=== PATIENT | male | born 1940 | race Hispanic/Latino ===

== ENCOUNTER 2016-12-22 13:21 | Emergency (ER) | payer MEDICARE ==
--- NOTE | 2016-12-22 14:31 | Emergency Department Report ---
ED Fall HPI - General Chief Complaint: Fall Stated Complaint: FALL/WEAKNESS Time Seen by Provider: 12/22/16 14:14 Source: patient, EMS (ems notes not available at time of chart dictation), RN notes reviewed Mode of arrival: Stretcher - History of Present Illness Initial Comments: This is a 75-year-old male. He is previously unknown to me. Has a past medical history of hypertension and bipolar disorder. The patient is brought to the hospital for multiple falls. He fell today at his right-hand side. He denies headache, neck pain, chest pain, abdominal pain before the fall. He landed on his right hip. He complains of right hip pain. He does not think he hit his head or his neck. He denies irritative and obstructive urinary symptoms. Denies chest pain or shortness of breath. He denies extremity weakness and numbness. The patient also reports that he had a few other falls earlier on this week. Thinks he fell at least once. MD Complaint: fall -: Sudden Fall From: out of bed When Fall Occurred: unsure Fall Witnessed: no Place Fall Occurred: other Prolonged Down Time?: no Symptoms Prior to Fall: none Location - Extremities: Right: Thigh, Leg Severity: mild Context: tripped/slipped, history of frequent falls Associated Symptoms: denies: headache, neck pain, numbness, weakness, chest paint, shortness of breath, abdominal pain, hematuria, lightheaded, vertigo, confusion - Related Data Allergies Allergy/AdvReac Type Severity Reaction Status Date / Time chlorpromazine HCl Allergy Unknown Verified 12/22/16 13:40 [From Thorazine] divalproex sodium Allergy Unknown Verified 12/22/16 13:40 [From Depakote] haloperidol [From Haldol] Allergy Unknown Verified 12/22/16 13:40 haloperidol lactate Allergy Unknown Verified 12/22/16 13:40 [From Haldol] lorazepam [From Ativan] Allergy Unknown Verified 12/22/16 13:40 methocarbamol [From Robaxin] Allergy Unknown Verified 12/22/16 13:40 ED Review of Systems ROS: Stated complaint: FALL/WEAKNESS Other details as noted in HPI Constitutional: denies: fever Eyes: denies: eye discharge Respiratory: denies: cough Cardiovascular: denies: chest pain, palpitations Endocrine: no symptoms reported Gastrointestinal: denies: abdominal pain, nausea, diarrhea Genitourinary: denies: urgency, dysuria Musculoskeletal: back pain, arthralgia. denies: joint swelling Skin: rash. denies: lesions Neurological: denies: headache, weakness, paresthesias Psychiatric: denies: anxiety, depression Hematological/Lymphatic: denies: easy bleeding, easy bruising ED Past Medical Hx - Past Medical History Previous Medical History?: Yes Hx Hypertension: Yes Hx Psychiatric Treatment: Yes (bipolar) - Surgical History Past Surgical History?: No - Social History Smoking Status: Never Smoker Substance Use Type: None ED Physical Exam - General Limitations: No Limitations General appearance: alert, in no apparent distress - Head Head exam: Present: atraumatic, normocephalic - Eye Eye exam: Present: normal appearance, EOMI. Absent: nystagmus - ENT ENT exam: Present: normal exam, normal orophraynx, mucous membranes moist, normal external ear exam - Neck Neck exam: Present: normal inspection, full ROM. Absent: tenderness, meningismus - Respiratory Respiratory exam: Present: normal lung sounds bilaterally. Absent: respiratory distress, wheezes, rales, rhonchi, stridor, chest wall tenderness - Cardiovascular Cardiovascular Exam: Present: regular rate, normal rhythm, normal heart sounds. Absent: bradycardia, tachycardia, irregular rhythm, systolic murmur, diastolic murmur, rubs, gallop - GI/Abdominal GI/Abdominal exam: Present: soft, normal bowel sounds. Absent: distended, tenderness, guarding, rebound, rigid, pulsatile mass - Rectal Rectal exam: Present: deferred - Extremities Exam Extremities exam: Present: full ROM, tenderness (his right lateral thigh tenderness. There is right lateral thigh ecchymosis.), normal capillary refill , other (the compartments are soft. There is no redness, pus or streaking. There are 2+ pulses noted in 4 extremities.). Absent: pedal edema, joint swelling, calf tenderness - Back Exam Back exam: Present: normal inspection, full ROM. Absent: tenderness, CVA tenderness (R), CVA tenderness (L), muscle spasm, paraspinal tenderness, vertebral tenderness - Neurological Exam Neurological exam: Present: alert, oriented X3, normal gait, other (Extraocular movements intact. Tongue midline. No facial droop. Facial sensation intact to light touch in the V1, V2, V3 distribution bilaterally. 5 and 5 strength in 4 extremities.. Sensation is intact to light touch in 4 extremities.). Absent : motor sensory deficit - Psychiatric Psychiatric exam: Present: normal affect, normal mood - Skin Skin exam: Present: warm, ecchymosis ED Course Vital Signs 12/22/16 12/22/16 12/22/16 13:43 13:56 14:00 Temperature 97.9 F Pulse Rate 96 H Respiratory 16 Rate Blood Pressure 140/80 130/67 Blood Pressure 140/80 [Left] O2 Sat by Pulse 99 Oximetry 12/22/16 15:53 Temperature Pulse Rate Respiratory Rate Blood Pressure 130/67 Blood Pressure [Left] O2 Sat by Pulse 98 Oximetry ED Medical Decision Making - Lab Data Result diagrams: 12/22/16 15:44 12/22/16 15:44 Vital Signs 12/22/16 12/22/16 12/22/16 13:43 13:56 14:00 Temperature 97.9 F Pulse Rate 96 H Respiratory 16 Rate Blood Pressure 140/80 130/67 Blood Pressure 140/80 [Left] O2 Sat by Pulse 99 Oximetry 12/22/16 15:53 Temperature Pulse Rate Respiratory Rate Blood Pressure 130/67 Blood Pressure [Left] O2 Sat by Pulse 98 Oximetry Lab Results 12/22/16 12/22/16 12/22/16 Range/Units 15:44 15:44 16:00 WBC 8.3 (4.5-11.0) K/mm3 RBC 4.57 (3.65-5.03) M/mm3 Hgb 14.7 (11.8-15.2) gm/dl Hct 43.1 (35.5-45.6) % MCV 94 (84-94) fl MCH 32 (28-32) pg MCHC 34 (32-34) % RDW 12.4 L (13.2-15.2) % Plt Count 211 (140-440) K/mm3 Sodium 131 L (137-145) mmol/L Potassium 3.6 (3.6-5.0) mmol/L Chloride 89.7 L (98-107) mmol/L Carbon Dioxide 25 (22-30) mmol/L Anion Gap 20 mmol/L BUN 16 (9-20) mg/dL Creatinine 0.9 (0.8-1.5) mg/dL Estimated GFR > 60 ml/min BUN/Creatinine Ratio 17.77 % Glucose 124 H (75-100) mg/dL Calcium 9.3 (8.4-10.2) mg/dL Total Creatine Kinase 226 H (55-170) units/L Urine Color Yellow (Yellow) Urine Turbidity Clear (Clear) Urine pH 6.0 (5.0-7.0) Ur Specific Palms 1.012 (1.003-1.030) Urine Protein <15 mg/dl (Negative) mg/dL Urine Glucose (UA) 50 (Negative) mg/dL Urine Ketones Neg (Negative) mg/dL Urine Blood Neg (Negative) Urine Nitrite Neg (Negative) Urine Bilirubin Neg (Negative) Urine Urobilinogen < 2.0 (<2.0) mg/dL Ur Leukocyte Esterase Neg (Negative) Urine WBC (Auto) < 1.0 (0.0-6.0) /HPF Urine RBC (Auto) 1.0 (0.0-6.0) /HPF - EKG Data -: EKG Interpreted by Ar EKG shows normal: sinus rhythm, axis, intervals, QRS complexes, ST-T waves - Radiology Data Radiology results: report reviewed, image reviewed Noncontrast CT scan of the brain and cervical spine are negative. X-ray the chest is negative. X-ray of the pelvis is negative. X-ray of the femur is negative. - Medical Decision Making Differential diagnosis: Intracranial injury, cervical spine injury, urinary tract infection, pneumonia, contusion, fracture, dislocation, deconditioning Assessment and plan: 75-year-old male with multiple falls. He is currently afebrile with reassuring vital signs, with a GCS of 15, and an NIH score of 0. He is able to stand without assistance. He can walk without assistance. Objective imaging studies unremarkable. Laboratory studies unremarkable. No compelling reason to admit the patient to the hospital this time. We will discharge back to his psychiatric facility. I have encouraged his receiving psychiatric facility to observe fall precautions with this patient. Critical care attestation.: If time is entered above; I have spent that time in minutes in the direct care of this critically ill patient, excluding procedure time. ED Disposition Clinical Impression: Contusion of right hip, Fall Disposition: [id number]/[id number] PSY HOSP/PSY UNIT Is pt being admited?: No Does the pt Need Aspirin: No Condition: Good Instructions: Fall Prevention (ED) Additional Instructions: Patient should avoid consumption of sedating and intoxicating medications. Patient should have follow-up precautions instituted. Continue current outpatient medications otherwise, as long as they are not sedating. Return to the ER right away with headache, neck pain, chest pain, abdominal pain , shortness of breath, confusion, intractable nausea or vomiting, inability to tolerate liquid feeds. Referrals: PRIMARY CARE, [Primary Care Provider] - 3-5 Days MOI LEOS MD [Staff Physician] - 3-5 Days
--- NOTE | 2016-12-22 15:27 | XRay Report ---
CHEST 2 VIEWS INDICATION: Fall. Right-sided pain. COMPARISON: None similar. FINDINGS: Frontal and lateral chest radiographs demonstrate normal cardiomediastinal silhouette. Clear lungs. Demineralized bones with multilevel thoracic spondylosis. CONCLUSION: No acute disease in the chest. Thank you for the opportunity to participate in this patient's care.
--- NOTE | 2016-12-22 15:29 | XRay Report ---
PELVIS RADIOGRAPH INDICATION: Fall. Hip pain. COMPARISON: None similar at this institution. FINDINGS: Frontal pelvic radiograph demonstrates intact articulation. Nonobstructive bowel gas pattern. Colon and rectosigmoid stool/possible constipation. Normal included bilateral SI and hip joints. Mild acetabular degenerative spurring, right more than left. Possible osteopenia. Mild lower lumbar degenerative changes. CONCLUSION: No acute radiographic abnormality with few other findings, as above. Thank you for the opportunity to participate in this patient's care.
--- NOTE | 2016-12-22 15:31 | XRay Report ---
RIGHT FEMUR RADIOGRAPHS INDICATION: Right hip pain. COMPARISON: None similar. FINDINGS: AP and lateral right femur radiographs demonstrate intact bones, included joints and soft tissues. Right acetabular/supra-acetabular spurring. Medial knee compartment narrowing also suspected. CONCLUSION: No acute right femur radiographic abnormality with few degenerative changes. Thank you for the opportunity to participate in this patient's care.
[2016-12-22 16:01] LABS: Hematocrit 43.1 % (35.5-45.6); Hemoglobin 14.7 gm/dl (11.8-15.2); Mean Corpuscular HGB Conc 34 % (32-34); Mean Corpuscular Hemoglobin 32 pg (28-32); Mean Corpuscular Volume 94 fl (84-94); Platelet Count 211 K/mm3 (140-440); Red Blood Count 4.57 M/mm3 (3.65-5.03); Red Cell Distribution Width 12.4 % (13.2-15.2); White Blood Count 8.3 K/mm3 (4.5-11.0)
[2016-12-22 16:19] LABS: Anion Gap 20 mmol/L; BUN/Creatinine Ratio 17.77; Blood Urea Nitrogen 16 mg/dL (9-20); Calcium 9.3 mg/dL (8.4-10.2); Carbon Dioxide 25 mmol/L (22-30); Chloride 89.7 mmol/L (98-107); Creatine Kinase 226 units/L (55-170); Glucose 124 mg/dL (75-100); Potassium 3.6 mmol/L (3.6-5.0); Sodium 131 mmol/L (137-145)
[2016-12-22 16:34] LABS: Bilirubin,Urine NEG (Negative); Blood,Urine NEG (Negative); Ketones,Urine NEG (Negative); Leukocyte Esterase,Urine NEG (Negative); Nitrite,Urine NEG (Negative); Protein,Urine <15 mg/dL mg/dL (Negative); Urobilinogen,Urine < 2.0 mg/dL (<2.0); WBC,Urine < 1.0 /HPF (0.0-6.0)
--- NOTE | 2016-12-22 17:31 | Cat Scan Report ---
FINAL REPORT EXAM: CT HEAD/BRAIN WO CON HISTORY: fall TECHNIQUE: Noncontrast serial axial images from skull base to vertex PRIORS: None. FINDINGS: There is moderate atrophy. There is no mass effect or midline shift. There are no abnormal intra or extra-axial fluid collections. Lateral ventricles are within normal limits for size and configuration. Basilar cisterns are patent. No acute intracranial hemorrhage is identified. Areas there is an asymmetric hypodense focus in the left basal ganglia that measures approximately 5 millimeters in diameter. Atherosclerotic changes are noted. Visualized paranasal sinuses and mastoid air cells are well aerated. No acute osseous abnormality is identified. IMPRESSION: 1. No acute intracranial hemorrhage is identified. 2. Asymmetric hypodense focus is noted in the left basal ganglia. This is a nonspecific finding. It may be related to chronic ischemic change.
--- NOTE | 2016-12-22 17:36 | Cat Scan Report ---
FINAL REPORT EXAM: CT CERVICAL SPINE WO CON HISTORY: fall TECHNIQUE: Noncontrast serial axial images through the cervical spine with coronal and sagittal reconstruction. PRIORS: None. FINDINGS: No gross abnormality is seen in the visualized portion of the brain. Mastoid air cells are well aerated. There is a hypodense focus in the right lobe of the thyroid gland that measures approximately 13 millimeters. 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 Visualized portion of the lung apices are clear. No acute fracture or anterolisthesis is identified. Degenerative changes are seen throughout the cervical spine. There are flowing osteophytes from C3 through T2 with associated osseous fusion. IMPRESSION: 1. No acute fracture or anterolisthesis is identified. 2. Multilevel degenerative change is noted. There is evidence of osseous fusion from C3 through T2. 3. There is a 13 millimeter hypodense focus in the right lobe of the thyroid gland. This is incompletely evaluated. This can be further assessed sonographically.
[2016-12-22 22:00] VITALS: BP 126/87
== END 2016-12-22 22:37 ==
LOC: ED 13:21
DX: S70.01XA Contusion of right hip, initial encounter (principal); F31.9 Bipolar disorder, unspecified; I10 Essential (primary) hypertension; W18.39XA Other fall on same level, initial encounter; Z91.81 History of falling; Y93.89 Activity, other specified; Y99.8 Other external cause status; Y92.89 Other specified places as the place of occurrence of the external cause; Z88.8 Allergy status to other drugs, medicaments and biological substances
CPT/HCPCS: 36415; 70450; 71020; 72125; 72170; 80048; 81001; 82550; 85027; 93005; 93010